=== PATIENT | male | born 1995 | race Caucasian/White ===

== ENCOUNTER 2019-04-19 21:11 | Inpatient (IN) | payer MEDICAID ==
[~2019-04-19] VITALS: Ht 172.7 cm; Wt 84.9 kg
[2019-04-19 21:30] VITALS: Ht 172.7 cm; Wt 84.9 kg
--- NOTE | 2019-04-19 22:13 | NUR ---
PT CAME TO ED CO EPIGASTRIC PAIN X2 DAYS. PT STS HE HAS TAKEN PEPTO FOR THE PAIN, PT STS IT WASN'T HELPFUL. PAIN UPON PALPATION IN THE EPIGASTRIC AREA. PT STS HE IS UNABLE TO USE THE RESTROOM BUT HAD BOWEL MOVEMENT YESTERDAY. NO TROUBLE W/URINATION. NO S/S OF DISTRESS. RESP E/U. AWAITING MSE. WILL CONTINUE TO MONITOR.
--- NOTE | 2019-04-19 22:40 | NUR ---
PT MEDICATED PER ORDER. PT NOW LAYING ON GURNEY W/EYES CLOSED. PT STS HE CAN STILL FEEL PAIN BUT IT ISN'T BAD. PT VERBALIZED UNDERSTANDING OF MEDICATION TEACHING. SEE EMAR FOR DETAILS.
--- NOTE | 2019-04-19 22:45 | NUR ---
LAB AT BEDSIDE FOR BLOOD DRAW
--- NOTE | 2019-04-19 22:55 | NUR ---
PT TAKEN TO CT
[2019-04-19 23:24] LABS: microscopic required? YES; urine erythrocyte NEGATIVE (NEGATIVE)
[2019-04-19 23:27] LABS: CALCIUM 9.3 mg/dL (8.5-10.1); CARBON DIOXIDE 21.7 mmol/L (21-32); CHLORIDE SERUM 99 mmol/L (98-107); GFR1 > 60 mL/min; GLUCOSE SERUM 142 mg/dL (74-106); POTASSIUM SERUM 3.4 mmol/L (3.5-5.1); SODIUM SERUM 138 mmol/L (136-145)
[2019-04-19 23:28] LABS: BASOPHIL % 0.3 % (0-2); PLATELET COUNT 158 x10^3mcL (130-400); RED CELL DISTRIBUTION WIDTH 12.5 % (11.5-14.5)
--- NOTE | 2019-04-19 23:30 | NUR ---
PT SLEEPING ON GURNEY IN POSITION OF COMFORT. NO S/S OF DISTRESS. RESP E/U. PT EASILY ARROUSABLE. WILL CONTINUE TO MONITOR.
[2019-04-19 23:32] LABS: ALBUMIN 4.9 g/dL (3.4-5.0); ALKALINE PHOSPHATASE 88 U/L (46-116); ALT/SGPT 41 U/L (16-63); AST/SGOT 19 U/L (15-37); BILIRUBIN TOTAL 1.81 mg/dL (0.20-1.00)
[2019-04-19 23:33] LABS: TOTAL PROTEIN, SERUM 8.4 g/dL (6.4-8.2)
[2019-04-19 23:34] LABS: C REACTIVE PROTEIN < 0.2 mg/dL (<=0.9)
[2019-04-19 23:38] LABS: AMPHETAMINE QUAL UR NONE DETECTED (See below)
[2019-04-20] VITALS (7 sets, daily range): BP systolic 109–138; BP diastolic 60–79
--- NOTE | 2019-04-20 00:06 | NUR ---
PT MEDICATED PER ORDER. PT VERBALIZED UNDERSTANDING OF MEDICATION TEACHING. SEE EMAR FOR DETAILS.
[2019-04-20 00:10] LABS: ERYTHROCYTE SED RATE 0 mm/hr (0-15)
--- NOTE | 2019-04-20 00:50 | NUR ---
RECEIVED REPORT FROM KEREN HORNER. WILL RESUME CARE OF PT. PT IS SLEEPING AT THIS TIME. BREATHING IS EVEN AND UNLABORED. CALL LIGHT WITHIN REACH. BED IN LOWEST POSITION. WILL CONTINUE TO MONITOR.
--- NOTE | 2019-04-20 00:57 | NUR ---
ATTEMPTED TO CALL REPORT TO ARSEN, SHE IS GETTING REPORT FROM ANOTHER NURSE AT THIS TIME. WILL TRY AGAIN.
--- NOTE | 2019-04-20 01:06 | NUR ---
RECEIVED REPORT FROM LINDSEY HORNER IN ED. AWAITING ARRIVAL OF PT TO UNIT.
--- NOTE | 2019-04-20 01:07 | NUR ---
REPORT GIVEN TO ARSEN TO ASSUME CARE OF PT .
--- NOTE | 2019-04-20 01:16 | NUR ---
RECEIVED PT FROM ED VIA [facility], CAME IN DUE TO ABDOMINAL PAIN. AAOX4. DENIES HEADACHE/DIZZINESS. ABLE TO FOLLOW COMMADNS. NO SOB NOTED, LUNG SOUNDS CTA. DENIES CHEST PAIN/PRESSURE. STATED THAT HE HAS 3/10 MID ABDOMINAL PAIN, HAD X1 EPISODE OF WATWERY STOOL YESTERDAY. DENIES NAUSEA/VOMITING AT THIS TIME. ABDOMEN IS SOFT. VOIDS. IV SITE PATENT AND INTACT. CALL LIGHT ON REACH. ENDORSED TO PRIMARY NURSE ARSEN FOR CONTINUITY OF CARE
--- NOTE | 2019-04-20 01:20 | NUR ---
RECEIVED REPORT FROM RU HORNER. WILL RESUME CARE OF PT. CALL LIGHT WITHIN REACH. BED IN LOWEST POSITION. SIDE RAILS X2 UP. WILL CONTINUE TO MONITOR. AWAITING ORDERS FROM
--- NOTE | 2019-04-20 01:29 | NUR ---
PT TRANSFERRED TO MED SURG FLOOR ACCOMPANIED BY NURSE. NO S/S OF DISTRESS. RESP E/U. RN AT BEDSIDE TO ASSUME CARE. IV SITE PATENT. PT DENIES PAIN OR DISCOMFORT TO SITE.
--- NOTE | 2019-04-20 05:47 | NUR ---
PT SLEPT INTERMITTENTLY UPON ARRIVING TO THE UNIT. IS AT BEDSIDE. PT COMPLIED WITH NURSING CARE THROUGHOUT THE SHIFT. PT C/O ABD PAIN AND WAS MEDICATED PER MAR WITH MORPHINE AND NORCO. SAFETY AND COMFORT MEASURES WERE MAINTAINED. ALL NEEDS AND CONCERNS ADDRESSED. PT IS NPO AT THIS TIME FOR PROCEDURE. CALL LIGHT WITHIN REACH. BED IN LOWEST POSITION. SIDE RAILS X2 UP. WILL CONTINUE TO MONITOR. WILL ENDORSE CARE TO DAY SHIFT.
[2019-04-20 06:32] LABS: BASOPHIL % 0 % (0-2); PLATELET COUNT 139 x10^3mcL (130-400); RED CELL DISTRIBUTION WIDTH 12.6 % (11.5-14.5)
--- NOTE | 2019-04-20 06:32 | NUR ---
GAVE REPORT TO OR NURSE. AWAITING FOR PT TO BE PICKED UP FOR PROCEDURE. WILL CONTINUE TO MONITOR.
--- NOTE | 2019-04-20 06:39 | NUR ---
PT IS BEING PICKED UP FOR PROCEDURE AT THIS TIME. V/S STABLE AT THIS TIME.
[2019-04-20 06:46] LABS: CARBON DIOXIDE 22.9 mmol/L (21-32); CHLORIDE SERUM 107 mmol/L (98-107); GFR1 > 60 mL/min; GLUCOSE SERUM 119 mg/dL (74-106); SODIUM SERUM 142 mmol/L (136-145)
--- NOTE | 2019-04-20 09:14 | NUR ---
Report received from SHAWNA Fish RN. Patient transferred back to same room from [facility] to bed. No signs of distress noted. Patient expressed feeling tired and having dry mouth. Will check orders and give ice chips for patient if appropriate. Vital signs stable: T - 97.9 deg F, HR: 67 bpm, RR: 16 breaths per minute, BP: 122/60 left arm, O2: 96% RA, Pain: 0/10. Family at bedside. Will continue to monitor patient and vital signs. Call light within reach.
--- NOTE | 2019-04-20 10:26 | NUR ---
Dr. Sellers and medicine team rounded on patient. Recommended patient to be kept NPO except ice chips. Discussion of re-order of lab draws to monitor Liver Function Test noted. Will monitor, review, and implement order.
--- NOTE | 2019-04-20 16:17 | NUR ---
Discount pharmacy card and list to low cost medical clinics given to patient by Makayla Cheng.
--- NOTE | 2019-04-20 18:30 | NUR ---
PATIENT FOUND IN BED. FRIENDS AND GIRLFRIEND AT BEDSIDE. NO SIGNS OF DISTRESS. PATIENT AWAKE, ALERT, AND ORIENTED X 4. WILL ENDORSE TO CALCINE FURNACE TENDER RN.
--- NOTE | 2019-04-20 19:25 | NUR ---
RECEIVED PT IN BED AWAKE,ALERT,ORIENTED X4. VISITORS AT BEDSIDE. NO SOB ON ROOM AIR. BOWEL SOUNDS ACTIVE. PT STATED HE ALREADY PASSED GAS. SX SITE TO ABDOMEN X3 W/ BANDAIDS. HE HAS NO C/O PAIN AT THIS TIME. W/ IVF NS INFUSING AT 100 CC/HR VIA RTAC. CALL LIGHT W/IN REACH.
--- NOTE | 2019-04-20 20:30 | NUR ---
PT AMBULATED IN THE HALLWAY ACCOMPANIED BY A FAMILY MEMBER.
--- NOTE | 2019-04-20 21:14 | NUR ---
PT C/O POST-OP PAIN 5/10. TORADOL 30 MG IVP GIVEN.
--- NOTE | 2019-04-21 05:06 | NUR ---
PT SLEPT THROUGH THE NIGHT. HE WAS MEDICATED FOR PAIN X1.HE IS AMBULATING POST-OP. HE IS PASSING GAS. IVF NS INFUSING AT 100 CC/HR VIA RTAC. ALL NEEDS ATTENDED TO.
[2019-04-21 06:32] LABS: BASOPHIL % 0.3 % (0-2); RED CELL DISTRIBUTION WIDTH 12.6 % (11.5-14.5)
[2019-04-21 06:34] VITALS: BP 130/72
[2019-04-21 06:42] LABS: PLATELET COUNT 124 x10^3mcL (130-400)
[2019-04-21 06:54] LABS: ALKALINE PHOSPHATASE 60 U/L (46-116); ALT/SGPT 26 U/L (16-63); AST/SGOT 13 U/L (15-37); BILIRUBIN TOTAL 1.68 mg/dL (0.20-1.00); CALCIUM 8.1 mg/dL (8.5-10.1); CARBON DIOXIDE 26.3 mmol/L (21-32); CHLORIDE SERUM 106 mmol/L (98-107); GFR1 > 60 mL/min; GLUCOSE SERUM 89 mg/dL (74-106); MAGNESIUM 1.9 mg/dL (1.8-2.4); POTASSIUM SERUM 3.7 mmol/L (3.5-5.1); SODIUM SERUM 141 mmol/L (136-145); TOTAL PROTEIN, SERUM 6.4 g/dL (6.4-8.2)
--- NOTE | 2019-04-21 07:25 | NUR ---
RECEIVED PT FROM TILE FITTER. PT AWAKE, ALERT. A/OX4. PT ON ROOM AIR WITH NO RESP DISTRESS NOTED. LUNGS CTA. IV ACCESS RAC, CDI SALINE LOCKED. PERIPHERAL PULSES PALPABLE, NO EDEMA NOTED. PT S/P LAP APPY WITH 3 INCISIONS TO ABDOMEN WITH BANDAIDS, CDI. PT REPORTS PAIN TOLERABLE 4/10 AT THIS TIME. WILL MONITOR. PT REPORTS POSITIVE GAS, POSITIVE BS NOTED. NO ISSUES VOIDING. PT ABLE TO AMBULATE. SAFETY MEASURES IN PLACE, BED LOW AND LOCKED. CALL LIGHT WITHIN REACH.
[2019-04-21 07:26] LABS: ALBUMIN 3.3 g/dL (3.4-5.0)
[2019-04-21 09:08] VITALS: BP 124/72
--- NOTE | 2019-04-21 09:30 | NUR ---
MORNING MEDS ADMINISTERED. PT REPORTS PAIN TOLERABLE AT THIS TIME.
--- NOTE | 2019-04-21 10:30 | NUR ---
PT REPORTS HAVING BOWEL MOVEMENT AT THIS TIME WITH NO ISSUES.
[2019-04-21] MEDS ORDERED: MOT600 PO (11:26)
[2019-04-21] MEDS ORDERED: NORCO1 TA2 PO (11:27)
[2019-04-21] MEDS ORDERED: KEFLEX500 M1 PO (11:28)
--- NOTE | 2019-04-21 11:49 | NUR ---
NO ACUTE DISTRESS NOTED AT THIS TIME. PT REPORTS WANTING TO GO HOME OLI. FAMILY AT BEDSIDE.
[2019-04-21 13:01] VITALS: BP 124/72
--- NOTE | 2019-04-21 13:23 | NUR ---
PT DISCHARGE INSTRUCTIONS/EDUCATION PROVIDED TO PATIENT. PT TO FOLLOW UP WITH DR CHATMAN WITH APPT PROVIDED. POST OP PICTURE IN CHART. BAND AIDS CHANGED, NO DRAINAGE, SWELLING OR BLEEDING NOTED TO 3 INCISION SITES. ZOSYN NOT GIVEN AT THIS TIME. PT WILL CHARTER REPRESENTATIVE PRESCRIBED ANTIBIOTIC AT PHARMACY UPON DISCHARGE.
--- NOTE | 2019-04-21 13:32 | NUR ---
PT COMPLAINING OF PAIN TO ABDOMEN, ASKING FOR PAIN MED. TORADOL ADMINISTERED ORDERED PRN (SEE EMAR) PT TO BE DISCHARGED IN HALF AN HOUR TO MONITOR PAIN.
--- NOTE | 2019-04-21 13:42 | NUR ---
IV REMOVED WITH CATHETER INTACT. NO BLEEDING, SWELLING NOTED. PT TOLERATED WELL.
--- NOTE | 2019-04-21 14:22 | NUR ---
PT REPORTS NO PAIN AT THIS TIME. MED EFFECTIVE. PT TAKEN BY WHEELCHAIR TO [facility]IVATE [employer] FOR DISCHARGE.
== END 2019-04-21 14:22 | disposition home or self-care (01) | DRG 234 ==
LOC: ED 21:11 → MU 23:56
PROVIDERS: Specialist; ADMIT Internal Medicine
PROC: 0DTJ4ZZ Resection of Appendix, Percutaneous Endoscopic Approach (ICD-10-PCS; principal; 2019-04-19)
DX: K35.890 Other acute appendicitis without perforation or gangrene (principal); E87.6 Hypokalemia; K38.1 Appendicular concretions; F12.10 Cannabis abuse, uncomplicated; Z68.29 Body mass index [BMI] 29.0-29.9, adult
CPT/HCPCS: G0378; G0480; J0330; J0690; J0696; J1170; J1885; J2001; J2270; J2405; J2543; J2704; J2710; J3010; J3490; J7030; J7060; J7120; Q0092

== ENCOUNTER 2019-04-29 17:25 | Emergency (ER) | payer MEDICAID ==
[~2019-04-29] VITALS: Ht 172.7 cm; Wt 82.1 kg
[~2019-04-29 17:25] MED LIST: KEFLEX500 M1 PO; MOT600 PO; NORCO1 TA2 PO
[2019-04-29 17:41] VITALS: Ht 172.7 cm; Wt 82.1 kg
[2019-04-29 19:49] VITALS: BP 128/83
== END 2019-04-29 19:49 | disposition home or self-care (01) ==
LOC: ED 17:25
DX: S30.1XXD Contusion of abdominal wall, subsequent encounter (principal); X58.XXXD Exposure to other specified factors, subsequent encounter; Z90.89 Acquired absence of other organs

== ENCOUNTER 2019-05-15 14:58 | Emergency (ER) | payer MEDICAID ==
[~2019-05-15] VITALS: Ht 170.2 cm; Wt 86.2 kg
[2019-05-15 15:44] VITALS: Ht 170.2 cm; Wt 86.2 kg
[2019-05-15 18:39] VITALS: BP 128/64
== END 2019-05-15 18:39 | disposition home or self-care (01) ==
LOC: ED 14:58
DX: S31.105D Unspecified open wound of abdominal wall, periumbilic region without penetration into peritoneal cavity, subsequent encounter (principal); Z90.89 Acquired absence of other organs; X58.XXXD Exposure to other specified factors, subsequent encounter